=== PATIENT | male | born 1980 | race Caucasian/White ===

== ENCOUNTER → 2018-11-02 | Outpatient (CLI) | payer BC ==
--- NOTE | 2018-11-02 15:05 | US ---
EXAMINATION TYPE: US kidneys/renal and bladder DATE OF EXAM: 11/02/2018 COMPARISON: NONE CLINICAL HISTORY: 38-year-old male R31.9 Hematuria. TECHNIQUE: Multiple sonographic images of the kidneys and bladder are obtained. FINDINGS: EXAM MEASUREMENTS: Right Kidney: 11.2 x 5.4 x 5.3 cm Left Kidney: 11.1 x 4.6 x 5.9 cm Preliminary results phoned to office and given immediately following exam. Right Kidney: wnl Left Kidney: wnl Bladder: wnl Bilateral Jets seen: Yes Enlarged and lobulated prostate gland measuring 4.7 x 5.8 cm impressing on the posterior bladder base . IMPRESSION: 1. No hydronephrosis. 2. Prostate gland appears enlarged measuring 5.8 x 4.7 cm. Correlate with PSA values, patient's sympt oms, and physical exam findings.
== END ==
LOC: RADUSWWP 14:06
PROVIDERS: ATTEND Family Medicine
DX: R31.9 Hematuria, unspecified (principal)
CPT/HCPCS: 76770

== ENCOUNTER → 2019-08-06 | Outpatient (CLI) | payer BC ==
--- NOTE | 2019-08-06 13:07 | US ---
EXAMINATION TYPE: US scrotum with doppler. Grayscale and color Doppler Duplex imaging performed of t mary scrotum. DATE OF EXAM: 08/06/2019 COMPARISON: NONE CLINICAL HISTORY: N50.89 DISORDER OF THE MALE GENITAL ORGANS. Patient complains of swollen vein in pe nis on and off. EXAM MEASUREMENTS: TESTICLES: Right Testicle: 3.7 x 3.1 x 2.1 cm cm Left Testicle: 3.9 x 3.0 x 2.1 cm EPIDIDYMIS HEAD: Right Epididymis: 0.8 x 0.9 x 0.6 cm Left Epididymis: 1.0 x 1.6 x 0.9 cm Doppler performed to assess for testicular vascularity; good bilateral color flow and waveforms are s een. There is no evidence of testicular torsion. Presence of hydroceles: No Presence of varicoceles: No Left epididymal cyst = 0.6 x 0.47 x 0.3 cm. This appears to have a thick wall. IMPRESSION: Thick-walled epididymal cyst. This could represent a benign cyst, benign adenomatoid tumo r, papillary cystadenoma or most likely a spermatocele.
== END | disposition home or self-care (01) ==
LOC: RADUSWWP 12:13
PROVIDERS: ATTEND Family Medicine
DX: N50.3 Cyst of epididymis (principal)
CPT/HCPCS: 76870; 93975

== ENCOUNTER → 2019-12-09 | Outpatient (CLI) | payer BC ==
--- NOTE | 2019-12-09 12:26 | US ---
EXAMINATION TYPE: US scrotum with doppler. Grayscale and color Doppler Duplex imaging performed of t he scrotum. DATE OF EXAM: 12/09/2019 COMPARISON: Ultrasound 08/06/2019 CLINICAL HISTORY: N50.3 Cyst of epididymis. Recheck epididymal cyst seen 4 months ago, patients state s no symptoms. EXAM MEASUREMENTS: TESTICLES: Right Testicle: 4.8 x 2.1 x 2.8 cm Left Testicle: 4.6 x 2.3 x 2.9 cm EPIDIDYMIS HEAD: Right Epididymis: 1.0 x 1.1 x 1.2 cm Left Epididymis: 0.9 x 1.2 x 1.6 cm Doppler performed to assess for testicular vascularity; good bilateral color flow and waveforms are s een. There is no evidence of testicular torsion. Presence of hydroceles: no Presence of varicoceles: no Left epididymal cyst seen on previous exam not seen on today's study. IMPRESSION: 1. Normal testicular ultrasound. 2. Previous epididymal cyst not identified currently.
== END | disposition home or self-care (01) ==
LOC: RADUSWWP 10:05
PROVIDERS: ATTEND Urology
DX: N50.3 Cyst of epididymis (principal)
CPT/HCPCS: 76870; 93975

== ENCOUNTER → 2020-04-21 | Outpatient (CLI) | payer BC ==
--- NOTE | 2020-04-21 09:00 | US ---
EXAMINATION TYPE: US abdomen complete DATE OF EXAM: 04/21/2020 COMPARISON: NONE CLINICAL HISTORY: R10.11 Right upper quad pain. RUQ pain. NPO EXAM MEASUREMENTS: Liver Length: 16.3 cm Gallbladder Wall: 0.2 cm CBD: 0.4 cm Spleen: 10.0 cm Right Kidney: 11.8 x 6.3 x 5.1 cm Left Kidney: 12.1 x 5.3 x 5.8 cm Pancreas: Tail obscured by overlying bowel gas Liver: wnl Gallbladder: wnl Evidence for sonographic Flores's sign: neg CBD: wnl Spleen: wnl Right Kidney: No hydronephrosis or masses seen Left Kidney: No hydronephrosis or masses seen Upper IVC: wnl Abd Aorta: No AAA visualized The liver is homogenous. The intrahepatic portion of the IVC and proximal abdominal aorta are within normal limits. There is no evidence of cholelithiasis. Common bile duct is unremarkable. The visu alized portions of the pancreas are homogenous. The spleen is unremarkable. Kidneys are symmetric a nd free of hydronephrosis. No renal lesions are seen. IMPRESSION: No significant abnormality appreciated.
== END | disposition home or self-care (01) ==
LOC: RADUSWWP 08:27
PROVIDERS: ATTEND Family Medicine
DX: R10.11 Right upper quadrant pain (principal)
CPT/HCPCS: 76700

== ENCOUNTER → 2021-02-16 | Outpatient (CLI) | payer BC ==
--- NOTE | 2021-02-16 18:33 | ECHOF ---
Referral Reason:R01.1 cardiac murmur MEASUREMENTS -------- HEIGHT: 182.9 cm WEIGHT: 120.2 kg BP: RVIDd: 2.8 cm (< 3.3) IVSd: 1.1 cm (0.6 - 1.1) LVIDd: 5.4 cm (3.9 - 5.3) LVPWd: 1.3 cm (0.6 - 1.1) IVSs: 1.6 cm LVIDs: 3.4 cm LVPWs: 1.6 cm LAESV Index (A-L): 25.99 ml/m Ao Diam: 3.6 cm (2.0 - 3.7) AV Cusp: 2.1 cm (1.5 - 2.6) MV EXCURSION: 27.766 mm (> 18.000) MV EF SLOPE: 202 mm/s (70 - 150) EPSS: 0.2 cm MV E Shamir: 0.81 m/s MV DecT: 177 ms MV A Shamir: 0.59 m/s MV E/A Ratio: 1.39 AV maxP.70 mmHg AV meanP.98 mmHg AR PHT: 365 ms RAP: 5.00 mmHg RVSP: 17.98 mmHg FINDINGS -------- Sinus rhythm. This was a technically good study. LV size, wall thickness and systolic function are normal, with an EF greater than 55%. The left maegn tricular size is normal. The right ventricle is normal in size. Normal LA size by volume 22+/-6 ml/m2. The right atrial size is normal. There is mild aortic regurgitation. Peak/mean gradient across the Aortic Valve is 11.70mmHg / 5.98m mHg. Functionally bicuspid aortic valve. Mild mitral regurgitation is present. Mild tricuspid regurgitation present. Right ventricular systolic pressure is normal at < 35 mmHg. There is no pulmonic regurgitation present. Ascending Aortic is dilated and measures 4.4cm. There is no pericardial effusion. CONCLUSIONS -------- 1. LV size, wall thickness and systolic function are normal, with an EF greater than 55%. 2. The left ventricular size is normal. 3. The right ventricle is normal in size. 4. Normal LA size by volume 22+/-6 ml/m2. 5. The right atrial size is normal. 6. There is mild aortic regurgitation. 7. Peak/mean gradient across the Aortic Valve is 11.70mmHg / 5.98mmHg. 8. Functionally bicuspid aortic valve. 9. Mild mitral regurgitation is present. 10. Mild tricuspid regurgitation present. 11. Ascending Aortic is dilated and measures 4.4cm. 12. There is no pericardial effusion. TUTORING ASSISTANT: Lynn Barajas RDCS
== END | disposition home or self-care (01) ==
LOC: RADECHMAIN 14:24
PROVIDERS: ATTEND Family Medicine
DX: I08.3 Combined rheumatic disorders of mitral, aortic and tricuspid valves (principal)
CPT/HCPCS: 93306

== ENCOUNTER → 2021-08-05 | Outpatient (CLI) | payer BC ==
--- NOTE | 2021-08-05 16:11 | MR ---
EXAMINATION TYPE: MR lumbar spine wo con DATE OF EXAM: 08/05/2021 COMPARISON: NONE HISTORY: Chronic low back pain. TECHNIQUE: T1 and T2 axial and sagittal images of the lumbar spine are submitted. FINDINGS: There is no abnormal signal seen within the visualized spinal cord or paraspinal soft tissu es. At L1-2 there is no disc herniation, degenerative disc disease or canal stenosis. No foraminal encroa chment. At L2-3 there is no degenerative disc disease, disc herniation, canal stenosis, or foraminal encroach ment. At L3-4 there is loss of disc signal and space compatible with degenerative disc disease. There is a right paracentral and central disc bulging but no canal stenosis. Neural foramina remain patent. At L4-5 there is severe degenerative disc disease with discogenic marrow changes and broad-based disc disc protrusion with mild effacement of thecal sac. There is facet arthropathy and ligamentum flavum with borderline to mild central stenosis and mild to moderate bilateral foraminal encroachment. At L5-S1 there is degenerative disc disease with broad-based central disc protrusion and mild effacem ent of thecal sac. Mild bilateral foraminal encroachment. Facet arthropathy noted. Incidental note is made of degenerative disc disease and a sagittal disc protrusion T11-T12 which is not included in the [id number] on the axial images IMPRESSION: 1. Degenerative disc disease levels L3-S1 with right basilar disc protrusion or small herniations at L4-5 and L5-S1 as discussed above. 2. There is a sagittal disc protrusion T11-T12 which is not included in the [id number] on the axia l images by MRI lumbar spine. Correlate clinically and if necessary with follow-up thoracic spine MRI .
== END | disposition home or self-care (01) ==
LOC: RADMRIMAIN 15:08
PROVIDERS: ATTEND Family Medicine
DX: M51.37 Other intervertebral disc degeneration, lumbosacral region (principal); M51.27 Other intervertebral disc displacement, lumbosacral region
CPT/HCPCS: 72148

== ENCOUNTER → 2022-04-08 | Outpatient (CLI) | payer BC ==
--- NOTE | 2022-04-08 19:57 | MR ---
EXAMINATION TYPE: MR brain wo con DATE OF EXAM: 04/08/2022 5:45 PM COMPARISON: None. CLINICAL INDICATION:Male, 41 years old with history of R41.3 AMNESIA; TECHNIQUE: Multi planar, multi sequence imaging was performed through the brain including: T1, T2, In version recovery, Diffusion weighted imaging, and gradient echo imaging. No gadolinium was given. FINDINGS: The ivy-white junctions, ventricular system, and cisterns appear unremarkable. Midline structures s how no abnormality. Diffusion-weighted imaging shows no evidence of restricted diffusion. The suscept ibility weighted images do not reveal any evidence for micro-hemorrhage. The bone marrow signal is within normal limits. The paranasal sinuses and globes are unremarkable. IMPRESSION: No evidence of intracranial mass or acute/subacute infarct.
== END | disposition home or self-care (01) ==
LOC: RADMRIMAIN 17:10
PROVIDERS: ATTEND Family Medicine
DX: R41.3 Other amnesia (principal)
CPT/HCPCS: 70551

== ENCOUNTER → 2023-10-10 | Outpatient (CLI) | payer BC ==
--- NOTE | 2023-10-10 13:41 | CT ---
EXAMINATION TYPE: CT angio chest DATE OF EXAM: 10/10/2023 1:15 PM COMPARISON: None HISTORY: F/U EVAL OF BICUSPID AND AORTIC VALVES CT DLP: 967.6 mGycm Automated exposure control for dose reduction was used. CONTRAST: CTA scan of the thorax is performed with IV Contrast, patient injected with 100 mL of Isovue 370, pul monary embolism protocol. . FINDINGS: There is no suspicious lung mass or nodule. There is no abnormal airspace/consolidative density or abnormal interstitial density. There is no pleural effusion or pneumothorax. There is aneurysmal dilatation of the ascending thoracic aorta which measures 4.7 cm. There is a large well-circumscribed 4.5 cm fluid-filled mass in the right paratracheal region consist ent with a benign mediastinal cyst possibly of atypical pericardial cyst. There is no hilar or axilla ry adenopathy. Limited scanning through the abdomen reveals fatty infiltration of liver but no other gross abnormali ties.. No focal osseous lesions are seen. IMPRESSION: Aneurysmal dilatation of the ascending thoracic aorta which measures 4.7 cm. 2. Large well-circumscribed fluid-filled mass in the right paratracheal region as described above.
== END | disposition home or self-care (01) ==
LOC: RADCTMAIN 11:24
PROVIDERS: ATTEND Internal Medicine Interventional Cardiology
DX: I71.21 Aneurysm of the ascending aorta, without rupture (principal); R22.2 Localized swelling, mass and lump, trunk
CPT/HCPCS: 71275; Q9967